=== PATIENT | male | born 1970 | race African-American/Black ===

== ENCOUNTER 2021-05-09 09:45 | Inpatient (IN) | payer OTHER ==
[~2021-05-09] VITALS: Ht 175.3 cm; Wt 116.9 kg
[2021-05-09 13:04] VITALS: BP 134/93
[2021-05-09] MEDS ORDERED: ONDANSETRON HCL 4 MG/2 ML VIAL IV PRN (14:00)
[2021-05-09] MEDS ORDERED: ACETAMINOPHEN 325 MG TAB PO PRN (14:00)
[2021-05-09] MEDS ORDERED: DOCUSATE SOD 100 MG CAP PO PRN (14:00)
[2021-05-09] MEDS ORDERED: NITROGLYCERIN 0.4 MG SL TAB SL PRN (14:00)
[2021-05-09] MEDS ORDERED: HYDROcodone-ACET 5/325MG TAB PO PRN (14:00)
[2021-05-09] MEDS ORDERED: MORPHINE SULFATE INJECTION 2 MG/ML SYRG IV PRN ×2 (14:00)
[2021-05-09] MEDS ORDERED: DEXTROSE (50%) 50ML SYRG IV PRN ×2 (14:00→15:45)
[2021-05-09] MEDS ORDERED: AMLO-489 PO (14:35)
[2021-05-09] MEDS ORDERED: LISI-716 PO (14:35)
[2021-05-09] MEDS ORDERED: METO-289 PO (14:35)
[2021-05-09] MEDS ORDERED: GLIP5TAB12 PO ×2 (14:35→15:11)
[2021-05-09] MEDS ORDERED: HYDR12.56 PO (14:35)
[2021-05-09] MEDS ORDERED: AMLO-496 PO (15:11)
[2021-05-09] MEDS ORDERED: ESOM20CA PO (15:11)
[2021-05-09] MEDS ORDERED: ATOR10TA PO (15:11)
[2021-05-09] MEDS ORDERED: LISI-706 PO (15:11)
[2021-05-09 15:12] LABS: Basophils # (auto) 0.1 10 ^3/uL (0-0.2); Basophils % (auto) 1.7 % (0.0-2.0); Eosinophils # (auto) 0 10 ^3/uL (0-0.8); Eosinophils % (auto) 0.6 % (0.0-7.0); Hemoglobin 14.5 g/dL (13.5-17.5); Lymphocytes # (auto) 1.9 10 ^3/uL (0.4-5.4); Mean Corpuscular Hemoglobin 29.2 pg (28.0-32.0); Mean Corpuscular Hgb Conc. 33.7 g/dL (32.0-36.0); Mean Corpuscular Volume 86.5 fL (80.0-100.0); Monocytes # (auto) 0.5 10 ^3/uL (0-1.3); Monocytes % (auto) 7.8 % (0.0-12.0); Neutrophils # (auto) 3.7 10 ^3/uL (1.6-8.6); Neutrophils % (auto) 59.9 % (37.0-80.0); Red Blood Cells 4.97 10^6/uL (4.5-5.90); Red Cell Distribution Width 13.9 % (11.8-14.3); White Blood Cell 6.2 10^3/uL (4.4-10.8)
[2021-05-09 15:29] LABS: INR 1.05 (0.9-1.15); Partial Thromboplastin Time 42.1 sec (23.6-33.0)
[2021-05-09 15:37] LABS: Albumin 3.2 g/dL (3.4-5.0); Calcium 8.7 mg/dL (8.5-10.1); Potassium 4.2 mmol/L (3.5-5.1)
[2021-05-09] MEDS: SODIUM CHLOR 0.9% PF (SALINE LOCK) 10ML VIAL/SYR IV SCH ×2 (15:39→21:57)
[2021-05-09 15:42] LABS: BUN/Creatinine Ratio 13.6; Bilirubin, Total 0.4 mg/dL (0.2-1.0); Total Protein 7.3 g/dL (6.4-8.2)
[2021-05-09] MEDS ORDERED: LISI-285 PO (15:56)
[2021-05-09] MEDS ORDERED: ATOR20TA PO (15:56)
[2021-05-09] MEDS ORDERED: ERGOCALCIFEROL 50,000 UNIT(1.25MG) CAP PO SCH (16:00)
[2021-05-09] MEDS ORDERED: amLODIPine BESYLATE 5 MG TAB PO ONE (16:00)
[2021-05-09] MEDS ORDERED: HEPARIN DRIP/D5W 100UNITS/ML 250 ML IV SCH (16:00)
[2021-05-09 16:38] VITALS: BP 142/98
[2021-05-09] MEDS: InsuLIN REG 1unit/0.01ml Soln (100units/ml) SC SCH ×2 (17:00→21:57)
[2021-05-09] MEDS: ACCU-CHEK COMFORT CURVE STRIP VI SCH ×2 (17:23→21:57)
[2021-05-09] MEDS ORDERED: ACCU-CHEK COMFORT CURVE STRIP VI SCH (18:00)
[2021-05-09] MEDS ORDERED: InsuLIN REG 1unit/0.01ml Soln (100units/ml) SC SCH (18:00)
[2021-05-09] MEDS: ENOXAPARIN SOD 120 MG/0.8 ML SYRINGE SC SCH (21:57)
[2021-05-09] MEDS: ATORVASTATIN 20 MG TAB PO SCH (21:57)
[2021-05-09 22:00] VITALS: BP 118/77
[2021-05-10] VITALS (10 sets, daily range): BP systolic 113–151; BP diastolic 62–104
[2021-05-10 00:56] LABS: Urine Bacteria NONE SEEN /hpf (None Seen); Urine Blood Negative /uL (Negative); Urine Mucus FEW (None Seen); Urine Specific Gravity 1.023 (1.001-1.035); Urine WBC 1 /hpf (0 - 3)
[2021-05-10 06:06] LABS: Basophils # (auto) 0 10 ^3/uL (0-0.2); Basophils % (auto) 0.7 % (0.0-2.0); Eosinophils # (auto) 0.1 10 ^3/uL (0-0.8); Hematocrit 42.2 % (41.0-53.0); Lymphocytes # (auto) 1.6 10 ^3/uL (0.4-5.4); Lymphocytes % (auto) 26.7 % (10.0-50.0); Mean Corpuscular Hemoglobin 29.1 pg (28.0-32.0); Mean Corpuscular Hgb Conc. 33.3 g/dL (32.0-36.0); Mean Corpuscular Volume 87.4 fL (80.0-100.0); Monocytes # (auto) 0.6 10 ^3/uL (0-1.3); Monocytes % (auto) 9.5 % (0.0-12.0); Neutrophils # (auto) 3.7 10 ^3/uL (1.6-8.6); Neutrophils % (auto) 62.1 % (37.0-80.0); Nucleated Red Blood Cells % 0.1 %; Red Blood Cells 4.83 10^6/uL (4.5-5.90); Red Cell Distribution Width 13.7 % (11.8-14.3)
[2021-05-10] MEDS: InsuLIN REG 1unit/0.01ml Soln (100units/ml) SC SCH ×4 (06:22→21:47)
[2021-05-10] MEDS: SODIUM CHLOR 0.9% PF (SALINE LOCK) 10ML VIAL/SYR IV SCH ×3 (06:22→21:31)
[2021-05-10] MEDS: ACCU-CHEK COMFORT CURVE STRIP VI SCH ×4 (06:22→21:49)
[2021-05-10 06:23] LABS: Calcium 8.7 mg/dL (8.5-10.1); Potassium 4.1 mmol/L (3.5-5.1)
[2021-05-10 06:25] LABS: BUN/Creatinine Ratio 14.2
[2021-05-10 06:37] LABS: INR 1.05 (0.9-1.15)
[2021-05-10] MEDS: ENOXAPARIN SOD 120 MG/0.8 ML SYRINGE SC SCH ×2 (09:21→21:31)
[2021-05-10] MEDS: amLODIPine BESYLATE 5 MG TAB PO SCH ×2 (09:21→10:05)
[2021-05-10] MEDS: ASPirin 81 mg TAB PO SCH (09:22)
[2021-05-10] MEDS ORDERED: LIDOCAINE 2%HCL (LOCAL ANESTH.) INJ 20ML MDV ONE (13:11)
[2021-05-10] MEDS ORDERED: IOHEXOL 350 MG/ML 100ML IJ ONE (13:11)
[2021-05-10] MEDS ORDERED: VERAPAMIL 2.5MG/ML INJ 2ML VIAL IV ONE (13:20)
[2021-05-10] MEDS ORDERED: HEPARIN SODIUM (PORCINE) 5000 UNITS/ML 1ML VIAL ONE (13:20)
[2021-05-10] MEDS ORDERED: ANGIOMAX 250 MG VIAL IV ONE (13:20)
[2021-05-10] MEDS ORDERED: SODIUM CHL 0.9% 50 ML ONE (13:20)
[2021-05-10] MEDS ORDERED: fentaNYL CITRATE 100 MCG/2 ML VL ONE (13:20)
[2021-05-10] MEDS ORDERED: MIDAZOLAM HCL 2MG/2ML 2ml VIAL (1mg/ml) ONE (13:20)
[2021-05-10] MEDS ORDERED: ASPirin 325 MG TAB ONE ×2 (13:55→14:02)
[2021-05-10] MEDS ORDERED: TICAGRELOR 90 MG TAB ONE ×2 (13:58→14:02)
[2021-05-10] MEDS: ATORVASTATIN 20 MG TAB PO SCH (21:31)
[2021-05-10] MEDS: TICAGRELOR 90 MG TAB PO SCH (21:55)
[2021-05-11 05:00] VITALS: BP 121/80
[2021-05-11 06:15] LABS: Calcium 8.5 mg/dL (8.5-10.1); Potassium 3.9 mmol/L (3.5-5.1)
[2021-05-11 06:19] LABS: BUN/Creatinine Ratio 13.6
[2021-05-11] MEDS: ACCU-CHEK COMFORT CURVE STRIP VI SCH ×2 (06:56→12:05)
[2021-05-11] MEDS: SODIUM CHLOR 0.9% PF (SALINE LOCK) 10ML VIAL/SYR IV SCH ×2 (06:56→14:27)
[2021-05-11] MEDS: InsuLIN REG 1unit/0.01ml Soln (100units/ml) SC SCH ×2 (06:56→11:30)
[2021-05-11 09:00] VITALS: BP 121/81
[2021-05-11] MEDS ORDERED: PANTOPRAZOLE 40 MG TAB PO SCH (10:00)
[2021-05-11] MEDS ORDERED: SACUBITRIL-VALSARTAN 24mg/26mg TAB PO ONE (10:45)
[2021-05-11] MEDS ORDERED: SACUBITRIL-VALSARTAN 24mg/26mg TAB PO SCH ×2 (10:45→22:00)
[2021-05-11] MEDS ORDERED: CARVEDILOL 3.125 MG TAB PO ONE ×2 (10:45)
[2021-05-11] MEDS: ASPirin 81 mg TAB PO SCH (11:16)
[2021-05-11] MEDS: TICAGRELOR 90 MG TAB PO SCH (11:16)
[2021-05-11] MEDS ORDERED: EMPA1TAB3 PO (11:56)
[2021-05-11] MEDS ORDERED: TICA90TA PO (11:56)
[2021-05-11] MEDS ORDERED: ATOR20TA50 PO (11:56)
[2021-05-11] MEDS ORDERED: SACU1TAB PO (11:56)
[2021-05-11] MEDS ORDERED: ERGO1CAP23 PO (11:56)
[2021-05-11] MEDS ORDERED: ASPI1CHW15 PO (11:56)
[2021-05-11] MEDS ORDERED: METO-289 PO (11:56)
[2021-05-11 13:00] VITALS: BP 145/104
[2021-05-11 14:45] VITALS: BP 145/104
[2021-05-11] MEDS ORDERED: CARVEDILOL 3.125 MG TAB PO SCH ×2 (22:00)
== END 2021-05-11 17:33 | disposition home or self-care (01) | DRG 247 ==
LOC: TELE-CENTR 11:54
PROVIDERS: ADMIT Internal Medicine; ATTEND Internal Medicine
PROC: 4A023N7 Measurement of Cardiac Sampling and Pressure, Left Heart, Percutaneous Approach (ICD-10-PCS; principal; 2021-05-10)
PROC: 027135Z Dilation of Coronary Artery, Two Arteries with Two Drug-eluting Intraluminal Devices, Percutaneous Approach (ICD-10-PCS; 2021-05-10)
PROC: B2111ZZ Fluoroscopy of Multiple Coronary Arteries using Low Osmolar Contrast (ICD-10-PCS; 2021-05-10)
PROC: B2151ZZ Fluoroscopy of Left Heart using Low Osmolar Contrast (ICD-10-PCS; 2021-05-10)
PROC: 4A033BC Measurement of Arterial Pressure, Coronary, Percutaneous Approach (ICD-10-PCS; 2021-05-10)
DX: I21.4 Non-ST elevation (NSTEMI) myocardial infarction (principal); E11.9 Type 2 diabetes mellitus without complications; E55.9 Vitamin D deficiency, unspecified; E66.01 Morbid (severe) obesity due to excess calories; E78.5 Hyperlipidemia, unspecified; I08.3 Combined rheumatic disorders of mitral, aortic and tricuspid valves; Z20.822 Contact with and (suspected) exposure to COVID-19; I11.9 Hypertensive heart disease without heart failure; K21.9 Gastro-esophageal reflux disease without esophagitis; R94.31 Abnormal electrocardiogram [ECG] [EKG]; Z68.38 Body mass index [BMI] 38.0-38.9, adult; Z79.84 Long term (current) use of oral hypoglycemic drugs
CPT/HCPCS: 36415; 71046; 80048; 80053; 80061; 81001; 82306; 82962; 83036; 84484; 85025; 85610; 85730; 92928; 93306; 93458; 93571; 99152; C1874; C1887; G0378; J1815; J2250

== ENCOUNTER → 2021-11-02 | Outpatient (CLI) | payer OTHER ==
[~2021-11-02] MED LIST: ASPI1CHW15 PO; ATOR20TA50 PO; EMPA1TAB3 PO; ERGO1CAP23 PO; METO-289 PO; SACU1TAB PO; TICA90TA PO
== END | disposition home or self-care (01) ==
LOC: XYW 08:49
PROVIDERS: ATTEND Internal Medicine
DX: I70.0 Atherosclerosis of aorta (principal)
CPT/HCPCS: 93306

== ENCOUNTER → 2023-10-07 | Outpatient (CLI) | payer OTHER ==
[~2023-10-07] MED LIST changes: +ASPI-736 PO; -ASPI1CHW15 PO
== END | disposition home or self-care (01) ==
LOC: XYW 07:55
PROVIDERS: ATTEND Student in an Organized Health Care Education/Training Program
DX: I35.1 Nonrheumatic aortic (valve) insufficiency (principal); I51.89 Other ill-defined heart diseases; R07.9 Chest pain, unspecified
CPT/HCPCS: 93306

== ENCOUNTER → 2023-11-11 | Outpatient (CLI) | payer OTHER ==
[~2023-11-11] VITALS: Ht 175.3 cm; Wt 104.3 kg
== END | disposition home or self-care (01) ==
LOC: XYW 07:32
PROVIDERS: ATTEND Student in an Organized Health Care Education/Training Program
DX: I25.119 Atherosclerotic heart disease of native coronary artery with unspecified angina pectoris (principal); I35.1 Nonrheumatic aortic (valve) insufficiency; I51.89 Other ill-defined heart diseases; R07.9 Chest pain, unspecified; I25.5 Ischemic cardiomyopathy; I10 Essential (primary) hypertension; E78.5 Hyperlipidemia, unspecified
CPT/HCPCS: 78452; 93017; A9500